=== PATIENT | female | born 1990 | race American Indian/Alaskan Native ===

== ENCOUNTER 2019-04-03 21:26 | Inpatient (IN) | payer OTHER ==
[2019-04-04] MEDS ORDERED: LACTATED RINGERS 1,000 ML ONE ×2 (01:56→03:13)
[2019-04-04] MEDS ORDERED: ePHEDrine SULFATE 50 MG/1 ML INJ IV PRN ×3 (03:10→06:21)
[2019-04-04] MEDS ORDERED: TERBUTALINE 1 MG/1 ML INJ SUB-Q PRN ×2 (03:10→06:21)
[2019-04-04] MEDS ORDERED: TERBUTALINE 1 MG/1 ML INJ IVP PRN ×2 (03:10→06:21)
[2019-04-04] MEDS ORDERED: LIDOCAINE (2%) 20 MG/1 ML VIAL 20 ML MDV INFILTRATI ONE ×2 (03:10→06:21)
[2019-04-04] MEDS ORDERED: MINERAL OIL 30 ML ORAL LIQD PO PRN ×2 (03:10→06:21)
[2019-04-04 03:56] LABS: Hematocrit 35.4 % (30.3-42.9); Hemoglobin 11.9 gm/dl (10.1-14.3); Mean Corpuscular HGB Conc 34 % (30-34); Mean Corpuscular Volume 87 fl (79-97); Platelet Count 180 K/mm3 (140-440); Red Blood Count 4.05 M/mm3 (3.65-5.03); Red Cell Distribution Width 14.3 % (13.2-15.2)
[2019-04-04] MEDS ORDERED: OXYTOCIN 20 UNIT/1000ML DRIP 20 UNITS/1,000 ML BAG IV SCH ×3 (04:00→12:00)
[2019-04-04] MEDS ORDERED: LACTATED RINGERS 1,000 ML IV SCH ×2 (04:00→07:00)
[2019-04-04] MEDS ORDERED: OXYTOCIN DRIP 30 UNITS/500 ML BAG IV SCH ×2 (04:00→07:00)
[2019-04-04 04:37] LABS: Hepatitis C Virus Antibody Non-Reactive (NonReactive)
[2019-04-04] MEDS ORDERED: NALOXONE 2 MG/2 ML INJ IV PRN (04:51)
--- NOTE | 2019-04-04 04:53 | Anesthesia Consultation ---
Anesthesia Consult and Med Hx Date of service: 04/04/19 - Airway Anesthetic Teeth Evaluation: Good ROM Head & Neck: Adequate Mental/Hyoid Distance: Adequate Mallampati Class: Class II Intubation Access Assessment: Probably Good - Pulmonary Exam CTA: Yes - Cardiac Exam Cardiac Exam: RRR - Pre-Operative Health Status ASA Pre-Surgery Classification: ASA2 Proposed Anesthetic Plan: Epidural - Pulmonary Hx Smoking: No Hx Asthma: No Hx Respiratory Symptoms: No SOB: No COPD: No Home Oxygen Therapy: No Hx Pneumonia: No Hx Sleep Apnea: No - Cardiovascular System Hx Hypertension: No Hx Coronary Artery Disease: No Hx Heart Attack/AMI: No Hx Angina: No Hx Percutaneous Transluminal Coronary Angioplasty (PTCA): No Hx Cardia Arrhythmia: No Hx Pacemaker: No Hx Internal Defibrillator: No Hx Valvular Heart Disease: No Hx Heart Murmur: No Hx Peripheral Vascular Disease: No - Central Nervous System Hx Neuromuscular Disorder: No Hx Seizures: No CVA: No Hx Back Pain: No Hx Psychiatric Problems: No - Gastrointestinal Hx Ulcer: No Hx Gastroesophageal Reflux Disease: No - Endocrine Hx Renal Disease: No Hx End Stage Renal Disease: No Hx Cirrhosis: No Hx Liver Disease: No Hx Insulin Dependent Diabetes: No Hx Non-Insulin Dependent Diabetes: No Hx Thyroid Disease: No Hx Hypothyroidism: Yes Hx Hyperthyroidism: No - Hematic Hx Anemia: Yes Hx Sickle Cell Disease: No - Other Systems Hx Alcohol Use: Yes Hx Substance Use: No Hx Cancer: No Hx Obesity: Yes (BMI 33)
[2019-04-04] MEDS ORDERED: fentaNYL-BUPIV 2 MCG/ML-0.125% 200 MCG/100 ML BAG EPIDURAL SCH (05:00)
--- NOTE | 2019-04-04 06:21 | History and Physical Report ---
History of Present Illness Date of examination: 04/04/19 Date of admission: 04/04/19 03:00 Chief complaint: Labor History of present illness: Pt is a 29yo BF EDC 04/09/19; EGA 39 2/7 weeks presents to L&D complaining of RUC's q 3-4 mins. She received care at [facility] since 9 weeks and course has been unremarkable. records are available and GBS is Positive. Past History Past Medical History: no pertinent history, neurologic (h/o cavernous angioma) Past Surgical History: no surgical history Family/Genetic History: none Social history: no significant social history, - Obstetrical History Expected Date of Delivery: 04/09/19 Actual Gestation: 39 Week(s) 2 Day(s) : 3 Medications and Allergies Allergies Allergy/AdvReac Type Severity Reaction Status Date / Time No Known Allergies Allergy Verified 04/04/19 03:09 Active Meds: Active Medications Ephedrine Sulfate (Ephedrine Sulfate) 10 mg IV Q2M PRN PRN Reason: Hypotension Ephedrine Sulfate (Ephedrine Sulfate) 10 mg IV Q2M PRN PRN Reason: Hypotension Oxytocin/Sodium Chloride (Pitocin/Ns 20 Unit/1000ml Drip) 20 units in 1,000 mls @ 125 mls/hr IV DIRECT CLEMENT Oxytocin/Sodium Chloride (Pitocin/Ns 30 Unit/500ml) 30 units in 500 mls @ 1 mls/hr IV TITR CLEMENT; Protocol Lactated Ringer's (Lactated Ringers) 1,000 mls @ 125 mls/hr IV DIRECT CLEMENT Fentanyl/Bupivacaine/Sodium Chlor (Fentanyl-Bupiv 2 Mcg/Ml-0.125%) 200 mcg in 100 mls @ 12 mls/hr EPIDURAL TITR CLEMENT; Protocol Mineral Oil (Mineral Oil) 30 ml PO QHS PRN PRN Reason: Constipation Naloxone HCl (Narcan 2 Mg/2 Ml) 0.2 mg IV Q5M PRN PRN Reason: Respiratory sedation Terbutaline Sulfate (Brethine) 0.25 mg SUB-Q ONCE PRN PRN Reason: Hyperstimulation/Hypertonicity Terbutaline Sulfate (Brethine) 0.25 mg IVP ONCE PRN PRN Reason: Hyperstimulation/Hypertonicity Review of Systems All systems: negative - Vital Signs Vital signs: Vital Signs Pulse BP 94 H 118/74 04/03/19 21:51 04/03/19 21:51 Temp Pulse Resp BP Pulse Ox 98.3 F 78 16 118/58 100 04/03/19 21:55 04/04/19 06:14 04/03/19 21:55 04/04/19 06:14 04/04/19 05:53 - Physical Exam Breasts: Positive: deferred Cardiovascular: Regular rate Abdomen: Positive: normal appearance Genitourinary (Female): Positive: normal external genitalia Uterus: Positive: enlarged Extremities: Positive: normal - Obstetrical FHR: category 1 Uterine Contraction Monitor Mode: External Cervical Dilatation: 10 Cervical Effacement Percentage: 100 station: +2 Uterine Contraction Pattern: Regular Uterine Tone Measurement Phase: Contraction Uterine Contraction Intensity: Moderate Results Result Diagrams: 04/04/19 02:45 All other labs normal. Assessment and Plan - Patient Problems (1) 39 weeks gestation of Onset Date: 04/04/19 Current Visit: Yes Status: Acute Plan to address problem: A: IUP @ 39 2/7 weeks in labor +GBS P: Admit to L&D for expectant vaginal delivery IV Ampicillin
--- NOTE | 2019-04-04 06:27 | Procedure Note ---
OB Delivery Note - Delivery Date of Delivery: 04/04/19 Surgeon: MIKEL BENNETT Estimated blood loss: 200cc - Vaginal Delivery presentation: vertex Delivery position: OA Intrapartum events: none Delivery induction: none Delivery augmentation: rupture of membranes Delivery monitor: external FHT, external uterine Route of delivery: Delivery placenta: spontaneous Delivery cord: 3 umbilical vessels Episiotomy: none Delivery laceration: none Delivery repair: vicryl Anesthesia: epidural Delivery comments: delivered OA and placed on Mom's chest for [id number] bonding and delayed cord clamping, cut by Dad - A at 1 minute: 8 at 5 minutes: 9 Infant Gender: Female ([id number])
[2019-04-04] MEDS ORDERED: ACETAMINOPHEN 325 MG TAB PO PRN (11:19)
[2019-04-04] MEDS ORDERED: WITCH HAZEL/ GLYCERIN PAD TP PRN (11:19)
[2019-04-04] MEDS ORDERED: LANOLIN/ZINC/DIMETHICONE (LANSINOH) 7 GM TP PRN (11:19)
[2019-04-04] MEDS ORDERED: PROMETHAZINE 25 MG TAB PO PRN (11:19)
[2019-04-04] MEDS ORDERED: ONDANSETRON 4 MG/2 ML INJ IV PRN (11:19)
[2019-04-04] MEDS ORDERED: diphenhydrAMINE 25 MG CAP PO PRN (11:19)
[2019-04-04] MEDS ORDERED: MAGNESIUM HYDROXIDE (MOM) ORAL LIQD UDC PO PRN (11:19)
[2019-04-04] MEDS ORDERED: PROMETHAZINE 25 MG RECT SUPP PR PRN (11:19)
[2019-04-04] MEDS: IBUPROFEN 600 MG TAB PO SCH ×2 (11:33→18:05)
[2019-04-04] MEDS: HYDROcodone/ACETAMINOPHEN 5-325 MG TAB PO PRN (22:22)
[2019-04-04] MEDS: FERROUS SULFATE 325 MG TAB PO SCH (22:22)
[2019-04-04 23:34] LABS: Hemoglobin 9.9 gm/dl (10.1-14.3)
[2019-04-05] MEDS: IBUPROFEN 600 MG TAB PO SCH ×4 (00:16→17:03)
[2019-04-05] MEDS ORDERED: MEASLES, MUMPS & RUBELLA 12,500 UNIT/0.5 ML VACCINE SUB-Q ONE (06:00)
[2019-04-05] MEDS ORDERED: TETANUS,DIPH,PERTUSS(ACELL) VACCINE 0.5 ML SYRINGE IM ONE (06:00)
--- NOTE | 2019-04-05 10:45 | Progress Note ---
Assessment and Plan - Patient Problems (1) 39 weeks gestation of Onset Date: 04/04/19 Current Visit: Yes Status: Resolved (2) (spontaneous vaginal delivery) Onset Date: 04/05/19 Current Visit: Yes Status: Resolved Plan to address problem: A: S/P - PPD #1 Doing well Asymptomatic anemia - stable P: May go home tomorrow. Subjective - Subjective Date of service: 04/05/19 Principal diagnosis: s/p - PPD #1 Interval history: Pt is feeling well without complaints. Bleeding improved. Patient reports: appetite normal, voiding normally, pain well controlled, flatus, ambulating normally, no dizzy ambulation, no nauseated [place]: doing well, nursing well Objective - Vital Signs Latest vital signs: Vital Signs Temp Pulse Resp BP BP Pulse Ox 04/05/19 07:53 98.4 F 90 18 95/57 04/04/19 23:41 98.2 F 74 20 92/50 98 04/04/19 15:46 98.2 F 83 20 103/59 97 04/04/19 12:00 98.0 F 77 20 113/59 99 Intake and Output 04/04/19 04/05/19 04/05/19 22:59 06:59 14:59 Intake Total 240 240 480 Output Total 450 800 Balance -210 -560 480 Intake: Oral 240 240 480 Output: Urine 450 800 Void 450 800 Other: Total, Intake Amount 120 240 480 Total, Output Amount 150 800 # Voids Void 3 - Exam Breasts: Present: deferred Abdomen: Present: normal appearance, soft Uterus: Present: normal, firm, fundal height below umbilicus Extremities: Present: normal - Labs Labs: Abnormal lab results 04/04/19 Range/Units 22:36 Hgb 9.9 L (10.1-14.3) gm/dl Laboratory Tests 04/04/19 04/04/19 04/04/19 02:45 02:45 02:45 WBC 10.2 RBC 4.05 Hgb 11.9 Hct 35.4 MCV 87 MCH 29 MCHC 34 RDW 14.3 Plt Count 180 RPR Nonreactive Hep Bs Antigen Hepatitis C Antibody HIV 1&2 Antibody Rapid HIV P24 Antigen Rubella IgG Antibody Blood Type A POSITIVE Antibody Screen Negative 04/04/19 04/04/19 04/04/19 02:45 04:00 04:00 WBC RBC Hgb Hct MCV MCH MCHC RDW Plt Count RPR Hep Bs Antigen Non-reactive Hepatitis C Antibody Non-reactive HIV 1&2 Antibody Rapid Non react HIV P24 Antigen Non react Rubella IgG Antibody Immune Blood Type Antibody Screen 04/04/19 22:36 WBC RBC Hgb 9.9 L Hct 31.0 MCV MCH MCHC RDW Plt Count RPR Hep Bs Antigen Hepatitis C Antibody HIV 1&2 Antibody Rapid HIV P24 Antigen Rubella IgG Antibody Blood Type Antibody Screen
[2019-04-05] MEDS: FERROUS SULFATE 325 MG TAB PO SCH ×2 (11:10→22:15)
[2019-04-05] MEDS: PRENATAL VIT27-FE FUMARATE-FOLIC ACID VIT TAB PO SCH (11:10)
--- NOTE | 2019-04-05 12:12 | Discharge Summary ---
Providers - Providers Date of Admission: 04/04/19 03:00 Date of discharge: 04/06/19 Attending physician: MIKEL BENNETT Primary care physician: MIKEL BENNETT Hospitalization Reason for admission: active labor, rupture of membranes, IUP at term Delivery: Episiotomy: none Laceration: none Other procedures: none complications: none Discharge diagnosis: IUP at term delivered [place] baby: female Hospital course: Unremarkable. Condition at discharge: Good Disposition: DC-01 TO HOME OR SELFCARE - Discharge Diagnoses (1) 39 weeks gestation of Status: Resolved (2) (spontaneous vaginal delivery) Status: Resolved Plan - Discharge Medications Prescriptions: Ferrous Sulfate [Feosol 325 MG tab] 325 mg PO BID #60 tablet Ibuprofen [Motrin 600 MG tab] 600 mg PO Q6H #30 tablet Vit-Fe Fumar-FA [ Vitamin] 1 each PO QDAY #30 tablet - Provider Discharge Summary Activity: routine, no sex for 6 weeks, no heavy lifting 4 weeks, no strenuous exercise Diet: routine Instructions: routine Additional instructions: [] Smoking cessation referral if applicable(refer to patient education folder for contact #) [] Refer to [facility]'s [facility] Booklet Call your doctor immediately for: * Fever > 100.5 * Heavy vaginal bleeding ( >1 pad per hour) * Severe persistent headache * Shortness of breath * Reddened, hot, painful area to leg or breast * Drainage or odor from incision. * Keep incision clean and dry at all times and follow doctor's instructions regarding bathing/showering - Follow up plan Follow up: MIKEL BENNETT MD [Primary Care Provider] - 6 Weeks ROMAINE VELOZ CNM [Advanced Practice Nurse] - 6 Weeks Forms: [facility] Discharge Summary, Discharge Signature Page
[2019-04-05] MEDS: HYDROcodone/ACETAMINOPHEN 5-325 MG TAB PO PRN (20:23)
[2019-04-06] MEDS: IBUPROFEN 600 MG TAB PO SCH ×2 (00:42→06:18)
[2019-04-06] MEDS: PRENATAL VIT27-FE FUMARATE-FOLIC ACID VIT TAB PO SCH (09:48)
[2019-04-06] MEDS: FERROUS SULFATE 325 MG TAB PO SCH (09:48)
[2019-04-06 09:55] VITALS: BP 115/74
== END 2019-04-06 09:55 | disposition home or self-care (01) | DRG 775 ==
LOC: TRG 21:26 → LD 21:31 → OBSVTOIN 04-04 03:00 → TRG 04-04 03:49 → OB 04-04 10:03
PROVIDERS: ADMIT Obstetrics & Gynecology; ATTEND Obstetrics & Gynecology
PROC: 10E0XZZ Delivery of Products of Conception, External Approach (ICD-10-PCS; principal; 2019-04-04)
PROC: 3E0R3BZ Introduction of Anesthetic Agent into Spinal Canal, Percutaneous Approach (ICD-10-PCS; 2019-04-04)
PROC: 00HU33Z Insertion of Infusion Device into Spinal Canal, Percutaneous Approach (ICD-10-PCS; 2019-04-04)
PROC: 3E0234Z Introduction of Serum, Toxoid and Vaccine into Muscle, Percutaneous Approach (ICD-10-PCS; 2019-04-05)
PROC: 3E0134Z Introduction of Serum, Toxoid and Vaccine into Subcutaneous Tissue, Percutaneous Approach (ICD-10-PCS; 2019-04-05)
DX: O80 Encounter for full-term uncomplicated delivery (principal); Z3A.39 39 weeks gestation of pregnancy; Z37.0 Single live birth; Z23 Encounter for immunization
CPT/HCPCS: 36415; 85014; 85018; 85027; 86592; 86706; 86762; 86803; 86850; 86900; 86901; 87806; G0378; J2590; J7120